=== PATIENT | female | born 1980 | race Caucasian/White ===

== ENCOUNTER 2023-10-19 06:22 | Day surgery (SDC) | payer BC ==
[~2023-10-19] VITALS: Ht 160 cm; Wt 69.9 kg
[2023-10-19] MEDS ORDERED: CEFAZOLIN SOD 2 GM in D5W 50 ML IV ONE (07:00)
[2023-10-19] MEDS ORDERED: NS IRRIG SOLN 1000 ML IR ONE (07:21)
[2023-10-19] MEDS ORDERED: ONDANSETRON HCL 4 MG/2 ML VIAL ONE ×2 (07:21→11:07)
[2023-10-19] MEDS ORDERED: WATER FOR IRRIGATION,STERILE 1,000 ML IRRIG.SOLN IR ONE (07:21)
[2023-10-19] MEDS ORDERED: KETOROLAC TROMETHAMINE 30 MG VIAL ONE (07:21)
[2023-10-19] MEDS ORDERED: NS IRRIG SOLN 5000 ML IR ONE (07:21)
[2023-10-19] MEDS ORDERED: LR 1,000 ML IV.SOLN IV ONE (07:21)
[2023-10-19] MEDS ORDERED: fentaNYL CITRATE/PF 100 MCG/2 ML AMP ONE (07:31)
[2023-10-19] MEDS ORDERED: KETAMINE HCL IN 0.9 % NACL 50 MG/5 ML SYRINGE ONE (07:32)
[2023-10-19] MEDS ORDERED: MIDAZOLAM HCL 2 MG/2 ML VIAL (VERSED) ONE (07:32)
[2023-10-19 07:52] LABS: HCG,QUAL RESULT NEGATIVE (NEGATIVE)
[2023-10-19] MEDS ORDERED: HYDROcodone/ACETAMIN 5-325 MG TAB (NORCO/ VICODIN) PO PRN (09:00)
[2023-10-19] MEDS ORDERED: OXYCODONE/ACETAMINOPHEN 5-325 TABLET PO PRN ×2 (09:00)
[2023-10-19] MEDS: HYDROmorphone 1 MG/ML INJ. CARTRIDGE IVP ONE (09:35)
[2023-10-19] MEDS ORDERED: HYDROmorphone 1 MG/ML INJ. CARTRIDGE ONE (09:35)
[2023-10-19] MEDS: ONDANSETRON HCL 4 MG/2 ML VIAL IVP ONE (11:06)
[2023-10-19] MEDS: ONDANSETRON HCL 4 MG/2 ML VIAL ONE (11:35)
[2023-10-19 12:17] VITALS: O2SAT 98
[2023-10-19 13:03] VITALS: BP_SYST 113; PULSE 51; RESP 18
== END 2023-10-19 12:15 | disposition home or self-care (01) ==
LOC: SDS 06:22 → SMU 06:23 → SDS 12:15
PROVIDERS: ATTEND Specialist
DX: N92.6 Irregular menstruation, unspecified (principal); N84.0 Polyp of corpus uteri
CPT/HCPCS: 71046; 87081; 58558; 84703; 88305; J0690; J1885; J3465; J2405; J3010; J1170; J7060; J7120; C1819; 93005